=== PATIENT | male | born 2000 | race Two or more races ===

== ENCOUNTER 2023-11-06 18:39 | Emergency (ER) | payer BC, OTHER ==
[2023-11-06] MEDS ORDERED: Ibuprofen 200 MG TAB ONE (19:15)
[2023-11-06] MEDS ORDERED: HYDROcodone/Acetaminophen 5/325 mg Tablet ONE (19:15)
== END 2023-11-06 19:45 | disposition home or self-care (01) ==
LOC: CSHERS 18:39
DX: S20.219A Contusion of unspecified front wall of thorax, initial encounter (principal); V89.2XXA Person injured in unspecified motor-vehicle accident, traffic, initial encounter
CPT/HCPCS: 71045; 93005